=== PATIENT | male | born 1970 | race Caucasian/White ===

== ENCOUNTER 2024-04-13 19:23 | Emergency (ER) | payer OTHER ==
[~2024-04-13] VITALS: Ht 177.8 cm; Wt 113.4 kg
[~2024-04-13 19:23] MED LIST: CEPHALEXIN500 M1 PO; CIPRO500 MG PO; ESOMEPRAZOLE MA40 M1 PO; KEFLEX500 MG PO; MOTRIN800 MG PO; VICODIN 500 MG-1 TAB PO
[2024-04-13 19:47] VITALS: BP 136/92
[2024-04-13] MEDS ORDERED: Lidocaine Hydrochloride 5 ML AMP SC ONE (20:25)
[2024-04-13] MEDS ORDERED: Tdap Vaccine 0.5 ML SYR (Adult Vaccine) IM ONE (20:30)
[2024-04-13] MEDS ORDERED: CEPHALEXIN500 M1 PO (21:06)
== END 2024-04-13 21:25 | disposition home or self-care (01) ==
LOC: ED 19:23
DX: S61.215A Laceration without foreign body of left ring finger without damage to nail, initial encounter (principal); Z79.2 Long term (current) use of antibiotics; Z79.899 Other long term (current) drug therapy; Z98.890 Other specified postprocedural states; W26.0XXA Contact with knife, initial encounter; Y93.89 Activity, other specified; Y92.89 Other specified places as the place of occurrence of the external cause; Y99.8 Other external cause status